=== PATIENT | female | born 1945 | race American Indian/Alaskan Native ===

== ENCOUNTER 2017-03-28 09:18 | Observation (INO) | payer OTHER, MEDICARE ==
[2017-03-28 09:45] VITALS: BMI 34.3
--- NOTE | 2017-03-28 10:45 | C.PDOC ---
History Of Present Illness Patient is a 72 y/o female who presents complaining of dizziness since last night. Describes it as a room-spinning sensation. Patient also reports nausea. No vomiting. States she feels better when eyes are closed. Denies any visual changes, headache, chest pain, or shortness of breath. On Wednesday patient saw her PMD who changed blood pressure medications secondary to patients blood pressure remaining high. Pt did not take the medication today. Time Seen by Provider: 03/28/17 09:45 Chief Complaint (Nursing): Dizziness/Lightheaded History Per: Patient History/Exam Limitations: no limitations Onset/Duration Of Symptoms: Days (x2) Current Symptoms Are (Timing): Still Present Past Medical History Reviewed: Historical Data, Nursing Documentation, Vital Signs Vital Signs: Last Vital Signs Temp 97.8 F 03/28/17 09:34 Pulse 63 03/28/17 15:26 Resp 18 03/28/17 15:26 BP 155/92 H 03/28/17 15:26 Pulse Ox 96 03/28/17 15:26 - Medical History PMH: HTN Denies: Chronic Kidney Disease Surgical History: Other Surgeries: Tubal ligation - [facility] COLONOSCOPY (08/01/14) Family History: States: No Known Family Hx - Social History Hx Alcohol Use: No Hx Substance Use: No - Immunization History Hx Tetanus Toxoid Vaccination: No Hx Influenza Vaccination: Yes Hx Pneumococcal Vaccination: No Review Of Systems Eyes: Negative for: Vision Change Cardiovascular: Negative for: Chest Pain Respiratory: Negative for: Shortness of Breath Gastrointestinal: Positive for: Nausea. Negative for: Vomiting Neurological: Positive for: Dizziness. Negative for: Headache Physical Exam - Physical Exam Appears: Non-toxic, No Acute Distress Skin: Normal Color, Warm, Dry Head: Atraumatic, Normacephalic Eye(s): bilateral: Normal Inspection (with no nystagmus), EOMI Nose: Normal Oral Mucosa: Moist Chest: Symmetrical Respiratory: No Accessory Muscle Use, Other (speaking full sentences) Neurological/Psych: Oriented x3, Normal Speech, No Other (focal deficits) ED Course And Treatment - Laboratory Results Result Diagrams: 03/28/17 11:39 03/28/17 11:39 ECG: Interpreted By Me (Dr Odonnell), Viewed By Me ECG Rhythm: Sinus Bradycardia Rate From EC O2 Sat by Pulse Oximetry: 99 (RA) Pulse Ox Interpretation: Normal Progress Note: Ordered labs, CT Head, IV fluids, and trial of PO Meclizine Disposition - Disposition - 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 - Scribe Statement The provider has reviewed the documentation as recorded by the Scribe (Rosie Snyder) All medical record entries made by the Scribe were at my direction and personally dictated by me. I have reviewed the chart and agree that the record accurately reflects my personal performance of the history, physical exam, medical decision making, and the department course for this patient. I have also personally directed, reviewed, and agree with the discharge instructions and disposition.
--- NOTE | 2017-03-28 11:17 | CT ---
PROCEDURE: CT HEAD WITHOUT CONTRAST. HISTORY: R/O Bleed COMPARISON: Images from noncontrast head CT performed 11/23/11 TECHNIQUE: Axial computed tomography images were obtained through the head/brain without intravenous contrast. Radiation dose: Total exam DLP = 852.26 mGy-cm. This CT exam was performed using one or more of the following dose reduction techniques: Automated exposure control, adjustment of the mA and/or kV according to patient size, and/or use of iterative reconstruction technique. FINDINGS: HEMORRHAGE: No intracranial hemorrhage. BRAIN: No mass effect or edema. The espinosa-white matter differentiation appears intact. Please note that MRI with diffusion imaging is more sensitive in the detection of acute ischemic event. VENTRICLES: No hydrocephalus. CALVARIUM: Unremarkable. PARANASAL SINUSES: Send mucosal thickening/opacification of the right frontal sinus. Mild mucosal thickening of the ethmoid air cells. The paranasal sinuses appear otherwise clear. MASTOID AIR CELLS: Unremarkable as visualized. No inflammatory changes. OTHER FINDINGS: None. IMPRESSION: No acute intracranial pathology identified.
[2017-03-28] MEDS ORDERED: Sodium Chloride 0.9% 1,000 ML ONE (11:18)
[2017-03-28] MEDS: Sodium Chloride 0.9% 1,000 ML IV SCH ×2 (11:20→20:44)
[2017-03-28 11:50] LABS: BASO % 0.6 % (0.0-2.0); EOS # 0.1 K/uL (0.0-0.7); EOS % 2.3 % (0.0-4.0); HEMOGLOBIN 14.7 g/dL (11.0-16.0); LYMPH # 1.4 K/uL (1.0-4.3); LYMPH % 28.5 % (20.0-40.0); MEAN CELL VOLUME 86.7 fL (81.0-99.0); MEAN CORPUSCULAR HGB CONC 33.5 g/dL (33.0-37.0); MEAN PLATELET VOLUME 9.2 fL (7.2-11.7); MONO # 0.5 K/uL (0.0-0.8); MONO % 9.6 % (0.0-10.0); NEUT # 2.9 K/uL (1.8-7.0); NRBC % 0.1 % (0.0-2.0); RBC 5.06 Mil/uL (3.80-5.20)
[2017-03-28 12:02] LABS: ALT/SGPT 30 U/L (9-52); AST/SGOT 24 U/L (14-36); BLOOD UREA NITROGEN 15 mg/dL (7-17); CALCIUM 9.4 mg/dl (8.6-10.4); GFR AFRICAN-AMERICAN > 60; GFR NON-AFRICAN AMERICAN > 60
[2017-03-28 12:15] LABS: CK-MB 0.43 ng/mL (0.0-3.38)
[2017-03-28 20:33] LABS: SQUAMOUS EPITHIAL 1 /hpf (0-5); URINE BACTERIA RARE (<OCC); URINE BILIRUBIN NEGATIVE (NEGATIVE); URINE BLOOD NEGATIVE (NEGATIVE); URINE CLARITY Hazy (Clear); URINE COLOR Yellow (YELLOW); URINE GLUCOSE (UA) NORMAL (Normal); URINE LEUKOCYTE ESTERASE NEG Leu/uL (Negative); URINE NITRATE NEGATIVE (NEGATIVE); URINE PROTEIN NEGATIVE (NEGATIVE); URINE UROBILINOGEN NORMAL mg/dL (0.2-1.0)
[2017-03-29 01:34] VITALS: RESP 20
[2017-03-29] MEDS: Sodium Chloride 0.9% 1,000 ML IV SCH (06:56)
[2017-03-29 08:26] VITALS: TEMP 97.9; O2SAT 98
[2017-03-29 09:43] VITALS: BP 170/108; PULSE 83
[2017-03-29] MEDS ORDERED: CLONIDINE HYDROCHLORIDE 0.2 MG PO SCH (10:00)
[2017-03-29] MEDS ORDERED: AMLODIPINE PO SCH (10:00)
[2017-03-29] MEDS ORDERED: Potassium Chloride 20 mEq ER Tab PO ONE (10:00)
[2017-03-29] MEDS ORDERED: VALSARTAN PO SCH (10:00)
[2017-03-29] MEDS ORDERED: HCTHIAZID PO SCH (10:00)
[2017-03-29 11:52] LABS: BASO % 0.2 % (0.0-2.0); EOS # 0.1 K/uL (0.0-0.7); EOS % 1.6 % (0.0-4.0); HEMOGLOBIN 15.4 g/dL (11.0-16.0); LYMPH # 1.9 K/uL (1.0-4.3); LYMPH % 30.7 % (20.0-40.0); MEAN CELL VOLUME 87.3 fL (81.0-99.0); MEAN CORPUSCULAR HEMOGLOBIN 28.7 pg (27.0-31.0); MEAN CORPUSCULAR HGB CONC 32.9 g/dL (33.0-37.0); MEAN PLATELET VOLUME 8.7 fL (7.2-11.7); MONO # 0.6 K/uL (0.0-0.8); MONO % 9.3 % (0.0-10.0); NEUT # 3.6 K/uL (1.8-7.0); NEUT % 58.2 % (50.0-75.0); NRBC % 0.1 % (0.0-2.0); RBC 5.37 Mil/uL (3.80-5.20); RED CELL DISTRIBUTION WIDTH 14.7 % (11.5-14.5); WHITE BLOOD COUNT 6.2 K/uL (4.8-10.8)
--- NOTE | 2017-03-29 12:30 | MRI ---
PROCEDURE: Magnetic Resonance Angiography Brain HISTORY: Dizziness COMPARISON: None available. TECHNIQUE: 3D time of flight MR angiography of the intracranial arteries was performed. Rotating maximum intensity projection images were generated. FINDINGS: INTERNAL CAROTID ARTERIES: Normal flow related signal. The skull base, petrous, cavernous and supraclinoid segments are bilaterally widely patient. ANTERIOR CEREBRAL ARTERIES: Normal flow related signal. A1 and A2 segments are widely patent. Smaller distal branches unremarkable, as visualized. MIDDLE CEREBRAL ARTERIES: Normal flow related signal. M1 and M2 segments are widely patent. Perisylvian branches grossly symmetric. There is early bifurcation of the right M1 segment. POSTERIOR CIRCULATION: Basilar Artery: Normal flow related signal. There is fenestration in the distal basilar artery proximal to the origin of posterior cerebral arteries. Distal Vertebral Arteries: Normal flow related signal. The right vertebral artery is dominant. Posterior Cerebral Arteries: Normal flow related signal. Posterior Inferior Cerebellar Arteries: Normal flow related signal. ANEURYSM/ VASCULAR MALFORMATIONS: None. OTHER FINDINGS: None. IMPRESSION: No evidence of occlusion, definite significant stenosis or saccular aneurysm.
[2017-03-29 12:34] LABS: ALBUMIN 4.3 g/dL (3.5-5.0); ALT/SGPT 29 U/L (9-52); AST/SGOT 28 U/L (14-36); BLOOD UREA NITROGEN 11 mg/dL (7-17); CALCIUM 9.6 mg/dl (8.6-10.4); GFR AFRICAN-AMERICAN > 60; GFR NON-AFRICAN AMERICAN > 60
--- NOTE | 2017-03-29 14:39 | CP.PCM.PN ---
Subjective - Date & Time of Evaluation Date of Evaluation: 03/29/17 Time of Evaluation: 14:39 - Subjective Subjective: PATIENT WAS ADMITTED FOR DIZZINESS; AAOX3 SITTING AT THE BEDSIDE WITH FAMILY MEMBER; DENIES CHEST PAIN, SOB, DIZINNES AND NO SIGN OF DISTRESS NOTED Objective - Vital Signs/Intake and Output Vital Signs (last 24 hours): Temp Pulse Resp BP Pulse Ox 97.9 F 83 20 170/108 H 98 03/29/17 07:30 03/29/17 09:43 03/29/17 07:30 03/29/17 09:43 03/29/17 07:30 - Medications Medications: Current Medications Amlodipine Besylate (Norvasc) 10 mg PO DAILY [facility] Last Admin: 03/29/17 09:42 Dose: Not Given Clonidine HCl (Catapres) 0.2 mg PO TID [facility] Last Admin: 03/29/17 09:41 Dose: 0.2 mg Heparin Sodium (Porcine) (Heparin) 5,000 units SC Q12 [facility] Last Admin: 03/29/17 09:41 Dose: 5,000 units Hydrochlorothiazide (Microzide) 12.5 mg PO DAILY [facility] Last Admin: 03/29/17 09:42 Dose: 12.5 mg Sodium Chloride (Sodium Chloride 0.9%) 1,000 mls @ 100 mls/hr IV .Q10H [facility] Last Admin: 03/29/17 06:56 Dose: Not Given Losartan Potassium (Cozaar) 100 mg PO DAILY [facility] Last Admin: 03/29/17 09:41 Dose: 100 mg - Labs Labs: 03/29/17 11:43 03/29/17 11:43 Assessment and Plan - Assessment and Plan (Free Text) Assessment: PATIENT SEEN AND EXAMINED AT THE BEDSIDE LUNG SOUND CLEAR HEAD CT SHOW NO MASS/ NO HEMORRHAGE MRA BRAIN SHOW NO EVIDENCE OF OCCLUSION OR ANEURYSM BP REPEAT IS 153/ [address] MATTSON WHO AGREE AND CLEAR PATIENT FOR DC FOLLOW UP WITH DR MATTSON AT HIS OFFICE OR CALL TO MAKE APPOINTMENT CONTINUE ALL YOUR HOME MEDICATION DISCONTINUE YOUR COMBINATION MEDICATION NEW PRESCRIPTION GIVEN AMLODIPINE 10 MG BY MOUTH DAILY FOR HYPERTENSION HTCZ 12.5MG BY MOUTH DAILY LOSARTAN 100 MG BY MOUTH DAILY FOR HYPERTENSION ACTIVITY TOLERATED CALL DR MATTSON OR GO TO THE EMERGENCY ROOM IF SYMPTOMS RETURN OR WORSENING DISCUSS WITH PATIENT WHO AGREE AND VERBALIZED UNDERSTANDING
--- NOTE | 2017-03-29 21:11 | CARD ---
APPROVED REPORT EKG Measurement Heart [id number] <Conclusion> Sinus bradycardia Otherwise normal ECG
--- NOTE | 2017-03-30 00:43 | HP ---
HISTORY OF PRESENT ILLNESS: This is a 72-year-old female, who was brought in with history of severe headache and dizzy spell. The patient was found to have blood pressure of 180/100. CAT scan was negative. Routine labs were acceptable. Denies any syncope. No chest pain. No shortness of breath. PAST MEDICAL HISTORY: No major admissions in the past. PERSONAL HISTORY: Does not smoke, does not drink. ALLERGIES: DENIED. FAMILY HISTORY: Positive for hypertension. REVIEW OF SYSTEMS: Generalized weakness is noted, headache, dizziness. No visual disturbances. No cough, no hemoptysis. No chest pain. No shortness of breath. No peptic ulcer disease. No bleeding disorder. No history of depression. No urinary complaints. PHYSICAL EXAMINATION: GENERAL: Shows elderly female, who is conscious, alert, well oriented, in no acute distress. VITAL SIGNS: She is 5 feet 4 inches and weighs 200 pounds. Blood pressure is 170/108, heart rate of 68, respiratory rate of 20 and afebrile. HEENT: Head is normocephalic. Eyes: No pallor. No icterus. NECK: Supple. LUNGS: Clear to auscultation bilaterally. HEART: PMI is not localized. S1 and S2 are normal, prominent S4 gallop. Soft early systolic murmur in aortic area and mitral area, grade 1/6 to 2/6. ABDOMEN: Soft. EXTREMITIES: Unremarkable. NEUROLOGIC: She is awake, alert, and oriented x3. Normal speech. LAB DATA: Hemoglobin is 14.7, potassium is 3.4, BUN is 15, creatinine is 0.8. EKG sinus emmy. CT of the head was unremarkable. MRI was unremarkable. ASSESSMENT: This is a 72-year-old female with history of dizzy spells, accelerated hypertension. PLAN: To resume clonidine 0.2 three times a day, amlodipine 10 mg one a day, Cozaar 100 mg one a day along with hydrochlorothiazide. If the patient is stable, we will discharge her this evening. ASSESSMENT: A 72-year-old female with uncontrolled hypertension, dizziness. PLAN: As ordered. Sami Beebe MD [facility] # [id number]
== END 2017-03-29 15:46 | disposition home or self-care (01) ==
LOC: C.ER 09:18 → C.9E 12:49 → C.5S 22:42
PROVIDERS: ADMIT Internal Medicine Cardiovascular Disease; ATTEND Internal Medicine Cardiovascular Disease
DX: I10 Essential (primary) hypertension (principal); Z79.899 Other long term (current) drug therapy
CPT/HCPCS: 36415; 70450; 70544; 80053; 81001; 82550; 82553; 84484; 85025; 93005; G0378; J1644; J2765; J7040